=== PATIENT | male | born 1930 | race Caucasian/White ===

== ENCOUNTER 2016-10-12 08:21 | Outpatient (CLI) | payer MEDICARE ==
[2016-10-12 09:01] LABS: ALT (SGPT) 14 U/L (0-55); AST (SGOT) 23 U/L (5-34); Alkaline Phosphatase 52 U/L (40-150); Anion Gap 12 mmol/L (10-20); BUN (Urea Nitrogen) 28 mg/dL (8.4-25.7); Bilirubin, Direct 0.4 mg/dL (0.1-0.3); Bilirubin, Total 0.9 mg/dL (0.2-1.2); Calc. Creatinine Clearance 0 mL/min (70-130); Calcium 9.2 mg/dL (7.8-10.44); Carbon Dioxide 26 mmol/L (23-31); Chloride 107 mmol/L (98-107); Estimated GFR-MDRD 59; LDL Cholesterol, Calculated 46 mg/dL; Protein, Total 6.5 g/dL (5.8-8.1)
== END 2016-10-12 08:22 | disposition home or self-care (01) ==
LOC: BURLAB 08:21
PROVIDERS: ATTEND Internal Medicine Cardiovascular Disease
DX: C61 Malignant neoplasm of prostate (principal); E78.00 Pure hypercholesterolemia, unspecified; E66.8 Other obesity; G45.9 Transient cerebral ischemic attack, unspecified
CPT/HCPCS: 36415; 80048; 80061; 80076; 84153

== ENCOUNTER 2018-07-21 19:05 | Emergency (ER) | payer MEDICARE ==
[2018-07-21 19:38] LABS: #Lymphocytes 0.5 thou/uL (1.20-3.40); #Monocytes 0.5 thou/uL (0.11-0.59); #Neutrophils 10.3 thou/uL (1.40-6.50); %Basophils 0.3 % (0.0-1.0); %Lymphocytes 4.7 % (21.0-51.0); %Monocytes 4.5 % (0.0-10.0); %Neutrophils 90.6 % (42.0-75.0); Mean Corpuscular HGB CONC 33.1 g/dL (32.0-36.0); Mean Corpuscular Hemoglobin 30.2 pg (27.0-31.0); Mean Corpuscular Volume 91.1 fL (78.0-98.0); Mean Platelet Volume 7.5 fL (7.4-10.4); Platelet Count 138 thou/uL (130-400); RBC Distribution Width 14.6 % (11.5-14.5); Red Blood Cell (RBC) Count 3.66 mill/uL (4.70-6.10); White Blood Cell (WBC) Count 11.4 thou/uL (4.8-10.8)
[2018-07-21] MEDS ORDERED: Piperacillin/Tazobactam 3.375 GM VIAL ONE (19:46)
[2018-07-21] MEDS ORDERED: Acetaminophen 500 MG TAB ONE (19:50)
[2018-07-21 19:56] LABS: ALT (SGPT) 11 U/L (8-55); AST (SGOT) 14 U/L (5-34); Albumin 3.6 g/dL (3.4-4.8); Alkaline Phosphatase 42 U/L (40-150); Anion Gap 13 mmol/L (10-20); BUN (Urea Nitrogen) 41 mg/dL (8.4-25.7); Bilirubin, Total 1.7 mg/dL (0.2-1.2); Calc. Creatinine Clearance 0 mL/min (70-130); Calcium 9.6 mg/dL (7.8-10.44); Carbon Dioxide 23 mmol/L (23-31); Chloride 105 mmol/L (98-107); Estimated GFR-MDRD 30; Globulin 3.3 g/dL (2.4-3.5); Glucose 151 mg/dL (83-110); Potassium 3.9 mmol/L (3.5-5.1); Protein, Total 6.9 g/dL (5.8-8.1); Sodium 137 mmol/L (136-145)
[2018-07-21] MEDS ORDERED: Sodium Chloride 0.9% 100 ML ONE (19:57)
[2018-07-21 20:50] LABS: Clarity Clear (Clear); Glucose, Urine (Dipstick) Negative (Negative); Leukocyte Negative (Negative); Nitrite Negative (Negative); Protein, Urine (Dipstick) Negative (Neg-Trace); pH, Urine 5.5 (5.0-9.0)
[2018-07-21 20:51] LABS: Bilirubin Negative (Negative); Blood, Urine Negative (Negative); Urobilinogen 0.2 mg/dL (0.2-1.0)
--- NOTE | 2018-07-21 22:03 | RAD ---
PORTABLE CHEST: 07/21/18 Comparison is made with a 02/05/14 study. This portable film at 1924 shows no major lobar consolidation. Some linear scarring is seen in the le ft base. There is some question of increased density over the right hemidiaphragm. I cannot exclude f luid here, but a good upright PA and lateral view would be needed to clear this area completely. The visible portions o the right lung are clear. There are no congestive changes. An AICD remains in plac e. IMPRESSION: Probably no acute findings, but cannot exclude some fluid in the right base. If an upright PA and lat eral view could be obtained, it would be very helpful. Code T POS: HOME
== END 2018-07-21 21:39 | disposition home or self-care (01) ==
LOC: BURERS 19:05
DX: A41.9 Sepsis, unspecified organism (principal); J18.1 Lobar pneumonia, unspecified organism; J06.9 Acute upper respiratory infection, unspecified; J45.909 Unspecified asthma, uncomplicated; I25.10 Atherosclerotic heart disease of native coronary artery without angina pectoris; I10 Essential (primary) hypertension; N40.0 Benign prostatic hyperplasia without lower urinary tract symptoms; Z87.891 Personal history of nicotine dependence; Z85.46 Personal history of malignant neoplasm of prostate
CPT/HCPCS: 51701; 71045; 80053; 81003; 83605; 85025; 87040; 87804; 93005; 94640; 94760; 96365; 96366; 96368; J1956; J2543; J7050; J7620

== ENCOUNTER 2020-02-28 08:38 | Emergency (ER) | payer MEDICARE ==
[2020-02-28 09:17] LABS: #Basophils 0.1 thou/uL (0.0-0.2); #Eosinphils 0.4 thou/uL (0.0-0.7); #Lymphocytes 1.3 thou/uL (1.20-3.40); #Monocytes 0.6 thou/uL (0.11-0.59); #Neutrophils 2.7 thou/uL (1.40-6.50); %Basophils 1.9 % (0.0-1.0); %Eosinophils 8.6 % (0.0-10.0); %Lymphocytes 25.3 % (21.0-51.0); %Monocytes 10.9 % (0.0-10.0); %Neutrophils 53.3 % (42.0-75.0); Hemoglobin 9.1 g/dL (14.0-18.0); Mean Corpuscular HGB CONC 29.9 g/dL (32.0-36.0); Mean Corpuscular Hemoglobin 30.2 pg (27.0-31.0); Mean Platelet Volume 10.4 fL (7.4-10.4); Platelet Count 142 thou/uL (130-400); RBC Distribution Width 16.8 % (11.5-14.5); White Blood Cell (WBC) Count 5.1 thou/uL (4.8-10.8)
[2020-02-28 09:36] LABS: ALT (SGPT) 7 U/L (8-55); AST (SGOT) 12 U/L (5-34); Albumin 3.3 g/dL (3.4-4.8); Alkaline Phosphatase 50 U/L (40-110); Anion Gap 12 mmol/L (10-20); BUN (Urea Nitrogen) 22 mg/dL (8.4-25.7); Bilirubin, Total 0.8 mg/dL (0.2-1.2); CK (CPK) 55 U/L (30-200); Calc. Creatinine Clearance 0 mL/min (70-130); Carbon Dioxide 26 mmol/L (23-31); Chloride 106 mmol/L (98-107); Estimated GFR-MDRD 56; Globulin 2.6 g/dL (2.4-3.5); Glucose 104 mg/dL (83-110); Magnesium 1.5 mg/dL (1.6-2.6); Potassium 3.9 mmol/L (3.5-5.1); Protein, Total 5.9 g/dL (5.8-8.1); Sodium 140 mmol/L (136-145)
[2020-02-28 09:39] LABS: MDiff Complete? YES
[2020-02-28 09:40] LABS: Anisocytosis SLIGHT = 6-15 cells (100X) (0-5/hpf); Macrocytosis SLIGHT = 6-15 cells (100X) (0-5/hpf); Platelet Morphology Comment Appears Adequate
--- NOTE | 2020-02-28 15:05 | RAD ---
PORTABLE CHEST: 02/28/20 An AP portable film at 0914 is compared with an 07/21/18 study. There has been no adverse interval change. The lungs are currently clear. The heart is borderline in size but there are no congestive changes. An AICD is in place as usual. The mediastinum was unremarka ble. IMPRESSION: No acute thoracic finding. POS: HOME
== END 2020-02-28 10:35 | disposition short-term general hospital (02) ==
LOC: BURERS 08:38
DX: R55 Syncope and collapse (principal); R00.1 Bradycardia, unspecified; S61.412A Laceration without foreign body of left hand, initial encounter; I25.10 Atherosclerotic heart disease of native coronary artery without angina pectoris; N40.0 Benign prostatic hyperplasia without lower urinary tract symptoms; I10 Essential (primary) hypertension; J45.909 Unspecified asthma, uncomplicated; Z95.0 Presence of cardiac pacemaker; Z87.891 Personal history of nicotine dependence; Z79.51 Long term (current) use of inhaled steroids
CPT/HCPCS: 71045; 80053; 82550; 83735; 84484; 85025; 93005; 96360

== ENCOUNTER 2021-05-07 08:43 | Emergency (ER) | payer MEDICARE | END 2021-05-07 09:32 | disposition home or self-care (01) | LOC: BURERS 08:43 | DX: M54.81 Occipital neuralgia (principal); I25.10 Atherosclerotic heart disease of native coronary artery without angina pectoris; N40.0 Benign prostatic hyperplasia without lower urinary tract symptoms; I10 Essential (primary) hypertension; J45.909 Unspecified asthma, uncomplicated; Z87.891 Personal history of nicotine dependence | CPT/HCPCS: 99283 ==

== ENCOUNTER 2021-05-13 10:14 | Emergency (ER) | payer MEDICARE ==
[2021-05-13 23:09] LABS: SARS-CoV-2 PCR by NAA Not Detected (NotDetected)
== END 2021-05-13 11:11 | disposition home or self-care (01) ==
LOC: BURERS 10:14
DX: R05 Cough (principal); Z20.822 Contact with and (suspected) exposure to COVID-19; I25.10 Atherosclerotic heart disease of native coronary artery without angina pectoris; K21.9 Gastro-esophageal reflux disease without esophagitis; I10 Essential (primary) hypertension; J45.909 Unspecified asthma, uncomplicated; Z87.891 Personal history of nicotine dependence
CPT/HCPCS: U0003; U0005; 99283

== ENCOUNTER 2021-06-10 10:09 | Emergency (ER) | payer MEDICARE ==
[2021-06-10 11:09] LABS: #Basophils 0.1 thou/uL (0.0-0.2); #Eosinphils 0.5 thou/uL (0.0-0.7); #Lymphocytes 1.3 thou/uL (1.20-3.40); #Monocytes 0.9 thou/uL (0.11-0.59); #Neutrophils 5.6 thou/uL (1.40-6.50); %Basophils 1.7 % (0.0-1.0); %Eosinophils 5.5 % (0.0-10.0); %Lymphocytes 15.4 % (21.0-51.0); %Monocytes 10.3 % (0.0-10.0); %Neutrophils 67.1 % (42.0-75.0); Hemoglobin 9.6 g/dL (14.0-18.0); Mean Corpuscular HGB CONC 33.6 g/dL (32.0-36.0); Mean Corpuscular Hemoglobin 32.9 pg (27.0-31.0); Mean Corpuscular Volume 97.8 fL (78.0-98.0); Mean Platelet Volume 9.6 fL (7.4-10.4); Platelet Count 188 thou/uL (130-400); RBC Distribution Width 15.5 % (11.5-14.5); Red Blood Cell (RBC) Count 2.92 mill/uL (4.70-6.10); White Blood Cell (WBC) Count 8.4 thou/uL (4.8-10.8)
[2021-06-10 11:15] LABS: ALT (SGPT) Less than 7 U/L (8-55); AST (SGOT) 14 U/L (5-34); Albumin 3.6 g/dL (3.4-4.8); Alkaline Phosphatase 53 U/L (40-110); Anion Gap 15 mmol/L (10-20); BUN (Urea Nitrogen) 25 mg/dL (8.4-25.7); Bilirubin, Total 1.2 mg/dL (0.2-1.2); Calc. Creatinine Clearance 0 mL/min (70-130); Calcium 9.8 mg/dL (7.8-10.44); Carbon Dioxide 25 mmol/L (23-31); Chloride 102 mmol/L (98-107); Globulin 3.1 g/dL (2.4-3.5); Glucose 115 mg/dL (83-110); Potassium 4.1 mmol/L (3.5-5.1); Protein, Total 6.7 g/dL (5.8-8.1); Sodium 138 mmol/L (136-145)
[2021-06-10] MEDS ORDERED: Lidocaine 1% PF 5 ML VIAL ONE (12:12)
[2021-06-10 18:37] LABS: RBC Count-Automated (BF) 4319 /cu.mm; WBC/Nucleated-Auto (BF) 26171 uL
[2021-06-10 18:41] LABS: BF Color Yellow; Body Fluid Source Synovial Fluid; Clarity Cloudy/Turbid (Clear)
[2021-06-10 19:01] LABS: BF Segmented Neutrophils 82 %
[2021-06-10 19:02] LABS: Cell Count Non Hematic 17 %
== END 2021-06-10 14:00 | disposition home or self-care (01) ==
LOC: BURERS 10:09
DX: M25.532 Pain in left wrist (principal); I10 Essential (primary) hypertension; Z87.891 Personal history of nicotine dependence
CPT/HCPCS: 20605; 80053; 83880; 84484; 85025; 85060; 87070; 87205; 89051; 89060; 93005